=== PATIENT | male | born 1960 | race Caucasian/White ===

== ENCOUNTER 2017-11-04 10:24 | Emergency (ER) | payer OTHER ==
[~2017-11-04] VITALS: Ht 190.5 cm; Wt 83.9 kg
[~2017-11-04 10:24] MED LIST: Norco 5-325 Ta1 EACH PO
[2017-11-04] MEDS ORDERED: INDO25 PO (10:41)
[2017-11-04] MEDS ORDERED: Percocet 7.5-31 EACH PO (11:23)
[2017-11-04] MEDS ORDERED: Cyclobenzaprine5 MG PO (11:23)
[2017-11-04] MEDS ORDERED: METPRE4DP PO (11:23)
[2017-11-04] MEDS ORDERED: Omeprazole20 M1 PO (11:24)
== END 2017-11-04 12:05 | disposition home or self-care (01) ==
LOC: ER 10:24
DX: G89.29 Other chronic pain (principal); M54.5 Low back pain; F17.200 Nicotine dependence, unspecified, uncomplicated; Z88.5 Allergy status to narcotic agent; Z79.899 Other long term (current) drug therapy
CPT/HCPCS: 99283

== ENCOUNTER 2017-11-18 23:06 | Emergency (ER) | payer OTHER ==
[~2017-11-18] VITALS: Ht 190.5 cm; Wt 81.7 kg
[~2017-11-18 23:06] MED LIST changes: +Cyclobenzaprine5 MG PO; +INDO25 PO; +METPRE4DP PO; +Omeprazole20 M1 PO; +Percocet 7.5-31 EACH PO
== END 2017-11-19 01:22 | disposition home or self-care (01) ==
LOC: ER 23:06
DX: M54.32 Sciatica, left side (principal); Z88.5 Allergy status to narcotic agent; Z79.899 Other long term (current) drug therapy; F17.210 Nicotine dependence, cigarettes, uncomplicated
CPT/HCPCS: 96372; 99283; J1885

== ENCOUNTER 2017-12-19 22:12 | Emergency (ER) | payer OTHER ==
[~2017-12-19] VITALS: Ht 190.5 cm; Wt 90.7 kg
[2017-12-19] MEDS ORDERED: GABA300 PO (22:30)
[2017-12-19] MEDS ORDERED: PRED5 PO (22:30)
[2017-12-20] MEDS ORDERED: Cyclobenzaprine5 MG PO (00:38)
[2017-12-20] MEDS ORDERED: Percocet 5-3251 EACH PO (00:38)
== END 2017-12-20 01:21 | disposition home or self-care (01) ==
LOC: ER 22:12
DX: G89.29 Other chronic pain (principal); M54.41 Lumbago with sciatica, right side; Z88.5 Allergy status to narcotic agent; Z79.52 Long term (current) use of systemic steroids; Z79.899 Other long term (current) drug therapy; F17.200 Nicotine dependence, unspecified, uncomplicated
CPT/HCPCS: 96372; 99283; J1885

== ENCOUNTER 2018-02-23 06:48 | Emergency (ER) | payer OTHER ==
[~2018-02-23] VITALS: Ht 190.5 cm; Wt 90.7 kg
[~2018-02-23 06:48] MED LIST changes: +GABA300 PO; +PRED5 PO; +Percocet 5-3251 EACH PO
[2018-02-23] MEDS ORDERED: FOLI1 PO (07:22)
[2018-02-23] MEDS ORDERED: METTREX2.5 PO (07:22)
[2018-02-23] MEDS ORDERED: INDO25 PO (07:22)
[2018-02-23] MEDS ORDERED: META800 PO (08:10)
[2018-02-23] MEDS ORDERED: METPRE4DP PO (08:10)
[2018-02-23] MEDS ORDERED: Percocet 5-3251 EACH PO (08:10)
== END 2018-02-23 09:52 | disposition home or self-care (01) ==
LOC: ER 06:48
DX: G89.29 Other chronic pain (principal); M54.5 Low back pain; F17.210 Nicotine dependence, cigarettes, uncomplicated; Z88.5 Allergy status to narcotic agent; Z79.899 Other long term (current) drug therapy
CPT/HCPCS: 96372; 99284; J1885; J3010

== ENCOUNTER → 2019-09-12 | Outpatient (CLI) | payer OTHER ==
[~2019-09-12] MED LIST changes: +FOLI1 PO; +META800 PO; +METTREX2.5 PO
[2019-09-13 09:48] LABS: Stool Occult Bld Immuno 1 Negative (NEGATIVE)
== END | disposition home or self-care (01) ==
LOC: LAB SHORT 05:00 → LAB 05:00
PROVIDERS: Family Medicine
DX: Z12.11 Encounter for screening for malignant neoplasm of colon (principal)
CPT/HCPCS: G0328

== ENCOUNTER → 2022-02-02 | Outpatient (CLI) | payer OTHER ==
[~2022-02-02] MED LIST changes: +ATOR20 PO; +HYDCHL25 PO
[2022-02-02 13:33] LABS: BASOPHILS ABSOLUTE AUTO 0.07 K/mm3 (0.00-0.23); BASOPHILS PERCENT AUTO 1 % (0-2); EOSINOPHILS ABSOLUTE AUTO 0.13 K/mm3 (0.00-0.68); EOSINOPHILS PERCENT AUTO 1 % (0-6); Hematocrit 53.9 % (37.0-53.0); Hemoglobin 18.4 g/dL (13.5-17.5); IMMATURE GRAN ABSOLUTE AUTO 0.02 K/mm3 (0.00-0.10); IMMATURE GRAN PERCENT AUTO 0 % (0-1); LYMPHOCYTES ABSOLUTE AUTO 2.42 K/mm3 (0.84-5.20); LYMPHOCYTES PERCENT AUTO 27 % (21-46); MONOCYTES ABSOLUTE AUTO 0.64 K/mm3 (0.16-1.47); MONOCYTES PERCENT AUTO 7 % (4-13); Mean Corpuscular HGB 29.6 pg (26.0-34.0); Mean Corpuscular HGB Conc 34.1 g/dL (31.5-36.5); Mean Corpuscular Volume 87 fL (80-100); Mean Platelet Volume 10.2 fL (9.1-12.4); NEUTROPHILS ABSOLUTE AUTO 5.71 K/mm3 (1.96-9.15); NEUTROPHILS PERCENT AUTO 64 % (41-73); Platelet Count 321 K/mm3 (150-400); RDW Standard Deviation 43.8 fL (35.1-46.3); Red Blood Cell Count 6.21 M/mm3 (4.30-5.90); White Blood Cell Count 8.99 K/mm3 (4.00-11.30)
[2022-02-02 13:42] LABS: Albumin, Blood 4.1 g/dL (3.4-5.0); Bilirubin, Total 0.7 mg/dL (0.1-1.0); Calcium, Blood 9.2 mg/dL (8.5-10.1); Globulin, Blood 4.3 g/dL (2.2-4.0); Potassium, Blood 3.6 mmol/L (3.5-5.5); Total Protein, Blood 8.4 g/dL (6.4-8.2)
== END | disposition home or self-care (01) ==
LOC: LAB SHORT 10:20 → LAB 10:20
PROVIDERS: Internal Medicine Rheumatology
DX: L40.50 Arthropathic psoriasis, unspecified (principal)
CPT/HCPCS: 80053; 85025; 85651

== ENCOUNTER → 2022-07-27 | Outpatient (CLI) | payer OTHER ==
[2022-07-27 15:02] LABS: BASOPHILS ABSOLUTE AUTO 0.05 K/mm3 (0.00-0.23); BASOPHILS PERCENT AUTO 1 % (0-2); EOSINOPHILS ABSOLUTE AUTO 0.11 K/mm3 (0.00-0.68); EOSINOPHILS PERCENT AUTO 2 % (0-6); Hematocrit 46.7 % (37.0-53.0); Hemoglobin 15.6 g/dL (13.5-17.5); IMMATURE GRAN ABSOLUTE AUTO 0.01 K/mm3 (0.00-0.10); IMMATURE GRAN PERCENT AUTO 0 % (0-1); LYMPHOCYTES ABSOLUTE AUTO 2.28 K/mm3 (0.84-5.20); LYMPHOCYTES PERCENT AUTO 36 % (21-46); MONOCYTES ABSOLUTE AUTO 0.55 K/mm3 (0.16-1.47); MONOCYTES PERCENT AUTO 9 % (4-13); Mean Corpuscular HGB 29.9 pg (26.0-34.0); Mean Corpuscular HGB Conc 33.4 g/dL (31.5-36.5); Mean Corpuscular Volume 90 fL (80-100); Mean Platelet Volume 10.8 fL (9.1-12.4); NEUTROPHILS ABSOLUTE AUTO 3.35 K/mm3 (1.96-9.15); NEUTROPHILS PERCENT AUTO 53 % (41-73); Platelet Count 262 K/mm3 (150-400); RDW Coefficient Variation 13.7 % (11.7-14.2); RDW Standard Deviation 44.7 fL (35.1-46.3); Red Blood Cell Count 5.22 M/mm3 (4.30-5.90); White Blood Cell Count 6.35 K/mm3 (4.00-11.30)
== END | disposition home or self-care (01) ==
LOC: LAB SHORT 11:43 → LAB 11:43
PROVIDERS: Internal Medicine Rheumatology
DX: L40.50 Arthropathic psoriasis, unspecified (principal)
CPT/HCPCS: 84450; 85025; 85651

== ENCOUNTER → 2023-02-14 | Outpatient (CLI) | payer OTHER ==
[2023-02-14 12:02] LABS: BASOPHILS ABSOLUTE AUTO 0.06 K/mm3 (0.00-0.23); BASOPHILS PERCENT AUTO 1 % (0-2); EOSINOPHILS PERCENT AUTO 3 % (0-6); Hematocrit 45.9 % (37.0-53.0); Hemoglobin 15.5 g/dL (13.5-17.5); IMMATURE GRAN ABSOLUTE AUTO 0.01 K/mm3 (0.00-0.10); IMMATURE GRAN PERCENT AUTO 0 % (0-1); LYMPHOCYTES ABSOLUTE AUTO 2.31 K/mm3 (0.84-5.20); LYMPHOCYTES PERCENT AUTO 29 % (21-46); MONOCYTES ABSOLUTE AUTO 0.59 K/mm3 (0.16-1.47); MONOCYTES PERCENT AUTO 7 % (4-13); Mean Corpuscular HGB 31.2 pg (26.0-34.0); Mean Corpuscular HGB Conc 33.8 g/dL (31.5-36.5); Mean Corpuscular Volume 92 fL (80-100); Mean Platelet Volume 9.7 fL (9.1-12.4); NEUTROPHILS ABSOLUTE AUTO 4.92 K/mm3 (1.96-9.15); NEUTROPHILS PERCENT AUTO 61 % (41-73); Platelet Count 311 K/mm3 (150-400); RDW Coefficient Variation 14.6 % (11.7-14.2); RDW Standard Deviation 48.9 fL (35.1-46.3); Red Blood Cell Count 4.97 M/mm3 (4.30-5.90); White Blood Cell Count 8.09 K/mm3 (4.00-11.30)
[2023-02-14 12:13] LABS: Albumin, Blood 3.8 g/dL (3.4-5.0); Bilirubin, Total 0.4 mg/dL (0.1-1.0); Bun/Creatinine Ratio 12.3 (12.0-20.0); Calcium, Blood 8.3 mg/dL (8.5-10.1); Creatinine, Blood 0.81 mg/dL (0.60-1.20); Total Protein, Blood 7.8 g/dL (6.4-8.2)
== END | disposition home or self-care (01) ==
LOC: LAB 10:14 → LAB SHORT 10:14
PROVIDERS: Internal Medicine Rheumatology
DX: L40.50 Arthropathic psoriasis, unspecified (principal)
CPT/HCPCS: 80053; 85025; 85651

== ENCOUNTER → 2023-05-17 | Outpatient (CLI) | payer OTHER ==
[2023-05-17 13:32] LABS: BASOPHILS ABSOLUTE AUTO 0.06 K/mm3 (0.00-0.23); BASOPHILS PERCENT AUTO 1 % (0-2); EOSINOPHILS PERCENT AUTO 1 % (0-6); Hematocrit 45.8 % (37.0-53.0); Hemoglobin 15.6 g/dL (13.5-17.5); IMMATURE GRAN ABSOLUTE AUTO 0.02 K/mm3 (0.00-0.10); IMMATURE GRAN PERCENT AUTO 0 % (0-1); LYMPHOCYTES ABSOLUTE AUTO 2.36 K/mm3 (0.84-5.20); LYMPHOCYTES PERCENT AUTO 34 % (21-46); MONOCYTES ABSOLUTE AUTO 0.57 K/mm3 (0.16-1.47); MONOCYTES PERCENT AUTO 8 % (4-13); Mean Corpuscular HGB 30.8 pg (26.0-34.0); Mean Corpuscular HGB Conc 34.1 g/dL (31.5-36.5); Mean Corpuscular Volume 91 fL (80-100); Mean Platelet Volume 10.3 fL (9.1-12.4); NEUTROPHILS ABSOLUTE AUTO 3.82 K/mm3 (1.96-9.15); NEUTROPHILS PERCENT AUTO 55 % (41-73); Platelet Count 268 K/mm3 (150-400); RDW Coefficient Variation 13.5 % (11.7-14.2); RDW Standard Deviation 44.4 fL (35.1-46.3); Red Blood Cell Count 5.06 M/mm3 (4.30-5.90); White Blood Cell Count 6.93 K/mm3 (4.00-11.30)
[2023-05-17 14:37] LABS: Albumin, Blood 3.7 g/dL (3.4-5.0); Albumin/Globulin Ratio 0.9 (0.8-1.8); Bilirubin, Total 0.5 mg/dL (0.1-1.0); Bun/Creatinine Ratio 7.6 (12.0-20.0); Calcium, Blood 8.3 mg/dL (8.5-10.1); Creatinine, Blood 0.79 mg/dL (0.60-1.20); Globulin, Blood 3.9 g/dL (2.2-4.0); Potassium, Blood 4.2 mmol/L (3.5-5.5); Total Protein, Blood 7.6 g/dL (6.4-8.2)
== END ==
LOC: LAB SHORT 10:57 → LAB 10:57
PROVIDERS: Internal Medicine Rheumatology
DX: L40.50 Arthropathic psoriasis, unspecified (principal)
CPT/HCPCS: 80053; 85025; 85651

== ENCOUNTER → 2023-08-29 | Outpatient (CLI) | payer OTHER ==
[2023-08-29 11:59] LABS: BASOPHILS ABSOLUTE AUTO 0.04 K/mm3 (0.00-0.23); BASOPHILS PERCENT AUTO 1 % (0-2); EOSINOPHILS PERCENT AUTO 1 % (0-6); Hemoglobin 15.9 g/dL (13.5-17.5); IMMATURE GRAN ABSOLUTE AUTO 0.02 K/mm3 (0.00-0.10); IMMATURE GRAN PERCENT AUTO 0 % (0-1); LYMPHOCYTES ABSOLUTE AUTO 2.51 K/mm3 (0.84-5.20); LYMPHOCYTES PERCENT AUTO 31 % (21-46); MONOCYTES ABSOLUTE AUTO 0.51 K/mm3 (0.16-1.47); MONOCYTES PERCENT AUTO 6 % (4-13); Mean Corpuscular HGB 30.3 pg (26.0-34.0); Mean Corpuscular HGB Conc 33.8 g/dL (31.5-36.5); Mean Corpuscular Volume 90 fL (80-100); Mean Platelet Volume 10.2 fL (9.1-12.4); NEUTROPHILS ABSOLUTE AUTO 4.95 K/mm3 (1.96-9.15); NEUTROPHILS PERCENT AUTO 61 % (41-73); Platelet Count 340 K/mm3 (150-400); RDW Coefficient Variation 13.5 % (11.7-14.2); RDW Standard Deviation 44.5 fL (35.1-46.3); Red Blood Cell Count 5.24 M/mm3 (4.30-5.90); White Blood Cell Count 8.13 K/mm3 (4.00-11.30)
[2023-08-29 13:15] LABS: Albumin, Blood 3.7 g/dL (3.4-5.0); Albumin/Globulin Ratio 0.9 (0.8-1.8); Bilirubin, Total 0.5 mg/dL (0.1-1.0); Bun/Creatinine Ratio 9.4 (12.0-20.0); Calcium, Blood 8.5 mg/dL (8.5-10.1); Creatinine, Blood 0.85 mg/dL (0.60-1.20); Globulin, Blood 4.3 g/dL (2.2-4.0); Potassium, Blood 4.1 mmol/L (3.5-5.5)
== END ==
LOC: LAB SHORT 11:02 → LAB 11:02
PROVIDERS: Internal Medicine Rheumatology
DX: L40.50 Arthropathic psoriasis, unspecified (principal)
CPT/HCPCS: 80053; 85025; 85651